=== PATIENT | female | born 1975 | race Two or more races ===

== ENCOUNTER 2024-10-08 14:32 | Emergency (ER) | payer OTHER ==
[~2024-10-08] VITALS: Ht 152.4 cm; Wt 90.7 kg
[2024-10-08] MEDS ORDERED: MORPHINE SULFATE INJ 2 MG/ML DISP.SYRIN ONE (14:56)
[2024-10-08] MEDS ORDERED: ONDANSETRON HCL/PF 4 MG/2 ML VIAL ONE (14:56)
[2024-10-08] MEDS: ONDANSETRON HCL/PF 4 MG/2 ML VIAL IVP ONE (15:05)
[2024-10-08] MEDS: IV NS 0.9% 1,000 ML BAG IV ONE (15:05)
[2024-10-08] MEDS: MORPHINE SULFATE INJ 2 MG/ML DISP.SYRIN IV ONE (15:05)
[2024-10-08 15:46] LABS: BASOPHILS % (AUTO) 0.2 % (0.0-2.0); EOSINOPHILS % (AUTO) 0.2 % (0.0-6.0); HEMATOCRIT 43 % (33-45); HEMOGLOBIN 14.9 g/dL (11.5-14.8); LYMPHOCYTES # (AUTO) 1.2 K/uL (0.8-4.8); LYMPHOCYTES % (AUTO) 9.8 % (20.0-44.0); MEAN CORPUSCULAR HEMOGLOBIN 32 PG (26.0-33.0); MEAN CORPUSCULAR HGB CONC 35 g/dl (31.0-36.0); MEAN CORPUSCULAR VOLUME 94 fL (82-100); MONOCYTES # (AUTO) 0.8 K/uL (0.1-1.30); MONOCYTES % (AUTO) 6.5 % (2.0-12.0); NEUTROPHILS # (AUTO) 10.3 K/uL (1.8-8.9); NEUTROPHILS % (AUTO) 83.3 % (43.0-81.0); PLATELET COUNT (AUTO) 266 K/uL (150-450); RED BLOOD CELL COUNT(AUTO) 4.61 MIL/uL (4.0-5.2); RED CELL DISTRIBUTION WIDTH 13.8 % (11.5-15.0); WHITE BLOOD COUNT (AUTO) 12.4 K/uL (4.3-11.0)
[2024-10-08 15:50] LABS: PREGNANCY TEST URINE QUAL NEGATIVE (NEGATIVE)
[2024-10-08 15:51] LABS: APPEARANCE,URINE CLOUDY (CLEAR); BILIRUBIN,URINE NEGATIVE (NEGATIVE); BLOOD, URINE 2+ Ery/uL (NEGATIVE); COLOR,URINE YELLOW (YELLOW); KETONES,URINE 1+ mg/dL (NEGATIVE); LEUKOCYTE ESTERASE ,URINE 2+ (NEGATIVE); NITRITE, URINE POSITIVE (NEGATIVE); PROTEIN,URINE 2+ mg/dl (NEGATIVE); UGLUCOSE 3+ mg/dL (NEGATIVE); UROBILINOGEN,URINE 0.2 EU/dL (0.2)
[2024-10-08 16:01] LABS: LACTIC ACID 1.2 mmol/L (0.4-2.0)
[2024-10-08 16:05] LABS: BILIRUBIN,DIRECT 0.2 mg/dL (0.0-0.2); BILIRUBIN,TOTAL 0.7 mg/dL (0.2-1.0); CALCIUM, SERUM 9.4 mg/dL (8.5-10.1); CREATININE 0.8 mg/dL (0.6-1.3); POTASSIUM 3.9 mmol/L (3.5-5.1)
[2024-10-08] MEDS: CEFTRIAXONE 1 G in IV D5W 50 ML IV ONE (16:14)
[2024-10-08 16:15] LABS: ADD URINE CULTURE YES; BACTERIA,URINE Moderate /HPF (None Seen); SQUAMOUS EPITHELIAL CELL,UR Rare /HPF (None Seen); WBC,URINE TOO NUMEROUS TO COUN /HPF (0-3)
[2024-10-08 16:19] LABS: YEAST,URINE Rare /HPF (None Seen)
[2024-10-08] MEDS ORDERED: IV NS 0.9% 250 ML IV ONE (16:52)
[2024-10-08] MEDS ORDERED: IOHEXOL-300 100 ML VIAL IV ONE (16:52)
[2024-10-08] MEDS ORDERED: CEFP200T14 PO (17:56)
[2024-10-08] MEDS ORDERED: ONDA4TAB5 PO (17:56)
[2024-10-08] MEDS ORDERED: IBUP-1955 PO (17:57)
[2024-10-08] MEDS ORDERED: ACET325C7 PO (17:57)
[2024-10-08 18:42] VITALS: BP 154/93; TEMP 98.5; O2SAT 98
== END 2024-10-08 18:42 | disposition home or self-care (01) ==
LOC: ER 14:50
DX: N12 Tubulo-interstitial nephritis, not specified as acute or chronic (principal); E11.9 Type 2 diabetes mellitus without complications; E78.00 Pure hypercholesterolemia, unspecified; I10 Essential (primary) hypertension; K76.0 Fatty (change of) liver, not elsewhere classified; R10.2 Pelvic and perineal pain
CPT/HCPCS: 99285; 74177; 96365; 96375; 96361; 85025; 80048; 87040; 87086; 83605; 83690; 80076; 84703; 81001; 36415; J0696; J2405; J7060; J7030; J7050; J2270; Q9967